=== PATIENT | female | born 1965 | race Caucasian/White ===

== ENCOUNTER → 2021-05-14 09:21 | Outpatient (CLI) | payer BC, SELFPAY ==
--- NOTE | ~2021-05-14 | MR_ITS ---
EXAMINATION: MR shoulder LT wo con DATE: 05/14/2021 10:07 INDICATION: Chronic left shoulder pain. TECHNIQUE: Magnetic resonance imaging (MRI) of the left shoulder was performed without intravenous co ntrast. Sequences included axial PD-weighted FS FSE, coronal oblique PD-weighted FS FSE and T2-weight ed FS FSE, and sagittal oblique T2-weighted FS FSE and T1-weighted FSE. COMPARISON: None. FINDINGS: Coracoacromial arch: The acromion undersurface is curved in morphology (type II). There is mild acromioclavicular joint os teoarthritis including inferiorly directed osteophytes. There is mild subacromial/subdeltoid bursitis . Rotator cuff: There is an interstitial tear of supraspinatus tendon measuring 1 mm anterior to posterior by 3.5 cm proximal to distal by <20% tendon thickness. There is mild infraspinatus tendinopathy. Teres minor te ndon is normal. There is a partial thickness tear of distal subscapularis tendon. There is no asymmet sterling fatty atrophy of the rotator cuff muscle bellies. There is a degenerative cyst in greater tuberos ity. Biceps tendon and glenoid labrum: There is a partial tear of biceps tendon, which is partially displaced medially into the subscapulari s tendon tear. There is degenerative tearing of anterior glenoid labrum. Fluid: There is a small glenohumeral joint effusion. Bones/cartilage: There is deep partial thickness cartilage loss of anterior glenoid. Humeral head cartilage is normal. IMPRESSION: 1. Moderate glenoid chondrosis. 2. Partial tears of supraspinatus and subscapularis tendons. 3. Partial tear of proximal biceps tendon, a portion of which is medially displaced into the subscapu feliz tendon tear. 4. Mild acromioclavicular joint osteoarthritis. 5. Small glenohumeral joint effusion. 6. Mild subacromial/subdeltoid bursitis. Reviewed, dictated and finalized at location A. IMPRESSION: 1. Moderate glenoid chondrosis. 2. Partial tears of supraspinatus and subscapularis tendons. 3. Partial tear of proximal biceps tendon, a portion of which is medially displ aced into the subscapularis tendon tear. 4. Mild acromioclavicular joint osteoarthritis. 5. Small glenohumeral joint effusion. 6. Mild subacromial/subdeltoid bursitis.
== END ==
PROVIDERS: PCP Family Medicine; Visit Provider Orthopaedic Surgery
DX: M25.512 Pain in left shoulder (principal); G89.29 Other chronic pain; M94.212 Chondromalacia, left shoulder; S46.812A Strain of other muscles, fascia and tendons at shoulder and upper arm level, left arm, initial encounter; M19.012 Primary osteoarthritis, left shoulder; M25.412 Effusion, left shoulder; M75.52 Bursitis of left shoulder
CPT/HCPCS: 73221